=== PATIENT | male | born 1980 | race Asian ===

== ENCOUNTER → 2020-11-12 | Outpatient (CLI) | payer OTHER ==
--- NOTE | 2020-11-12 13:14 | RAD ---
Right RIBS with PA chest. HISTORY: Mid clavicle and right fourth and fifth ribs space pain PA view was taken of the chest. There is no pneumothorax or pleural effusion. Lungs are clear. Heart is normal in size. AP and oblique views were taken of the right ribs. Right clavicle appears intact. There is no fractur e or acute osseous abnormality in the right ribs. IMPRESSION: 1. No acute chest disease. 2. No right rib fracture noted. Electronically signed by: Teja Roberson MD (11/12/2020 1:12 PM) [facility]
== END ==
LOC: PMG 12:30
PROVIDERS: ATTEND Nurse Practitioner Family
DX: R07.89 Other chest pain (principal)
CPT/HCPCS: 71101